=== PATIENT | female | born 1940 | race Caucasian/White ===

== ENCOUNTER 2018-10-03 13:37 | Outpatient (CLI) | payer OTHER ==
--- NOTE | 2018-10-07 08:32 | HOLTER ---
PATIENT INFORMATION AND COMMENTS Attending Physician: DR. DINO CASILLAS Indications: CARDIAC ARRHYTHMIA __ Patient Medications: LEVIMIR, HUMALOG, LISINOPRIL, PLENDIL __ Pre-procedure Summary: Protocol: Standard Heart Rate Started: 10/03/18 1354 Minimum: 56 BPM Weight: 152 LBS Ended: 10/04/18 1354 Maximum: 123 BPM Height: 58" Duration: 24 HOURS Average: 78 BPM _ INTERPRETATIONS/OBSERVATIONS: 1. BASIC RHYTHM: SINUS, RATE 56 BPM TO 125 BPM, AVERAGE 78 BPM 2. INFREQUENT PVC'S--1% OF BEATS SCANNED--ONE EKATERINA--3 COUPLETS 3. FEW PAC'S 4. ONE PAUSE OF 2.[address] NO [address]-T WAVE CHANGES FROM BASELINE 6. ACTIVITY LOG NOT FILLED OUT MTDD
== END 2018-10-03 13:38 | disposition home or self-care (01) ==
LOC: CAR 13:37
PROVIDERS: ATTEND Family Medicine
DX: I49.9 Cardiac arrhythmia, unspecified (principal)
CPT/HCPCS: 93227

== ENCOUNTER 2021-06-03 08:25 | Inpatient (IN) ==
--- NOTE | 2021-06-03 08:49 | ED.PDOC ---
General ED Provider: Dr. ENRIQUE SCHAEFFER Chief Complaint: Shortness of Air Stated Complaint: comes to the Er with complaints of 4 days of progressive shortness of breath initially with activity not even at rest. Denies any chest pain. Time Seen by Provider: 06/03/21 08:38 Mode of Arrival: Walk-In Information Source: Patient Exam Limitations: No limitations Primary Care Provider: DINO LANDRY Nursing and Triage Documentation Reviewed and Agree: Yes Does patient meet sepsis criteria?: No System Inflammatory Response Syndrome: Not Applicable Sepsis Protocol: For patient's 13 years and over: Temp is 96.8 and below OR 101 and greater Pulse >90 BPM Resp >20/minute Acutely Altered Mental Status Are patient's symptoms suggestive of a new infection, such as: -Pneumonia -Skin, Soft Tissue -Endocarditis -UTI -Bone, Joint Infection -Implantable Device -Acute Abdominal Infection -Wound Infection -Meningitis -Blood Stream Catheter Infection -Unknown Review of Systems Review Of Systems Constitutional: Reports No symptoms Eyes: Reports No symptoms Ears, Nose, Mouth, Throat: Reports No symptoms Respiratory: Reports Short of air Cardiac: Reports Edema (legs ( new) ); Denies Chest pain GI: Reports No symptoms : Reports No symptoms Musculoskeletal: Reports No symptoms Skin: Reports No symptoms Neurological: Reports Anxiety Endocrine: Reports No symptoms Hematologic/Lymphatic: Reports No symptoms All Other Systems: Reviewed and Negative [facility] Female Reproductive History Menstrual Hx Hysterectomy: Yes Hx Tubal Ligation: No Physical Exam Physical Exam Appearance: Reports Ill-appearing Ill-appearing: Mild Pain Distress: None Eyes: Reports EOMI and Conjunctiva clear ENT: Reports Nose normal Neck: Not Examined Respiratory: Reports Breath sounds clear, Breath sounds diminished and Crackles (at the bases ) Cardiovascular: Reports RRR and Pulses normal GI/: Reports Soft and Nontender Musculoskeletal: Reports Normal strength, ROM intact and Edema (1-2 + pitting edema ) Skin: Reports Warm Neurological: Reports Sensation intact and Motor intact Psychiatric: Reports Anxious Re-Evaluation Re-Evaluation Time of Re-Evaluation: 11:06 Status: Improved Vital Signs Stable: Yes Physician Notification Case Discussed Physician Notified: Dr Landry Time of Notification: 11:00 (ok to admit) Critical Care Note Critical Care Note Total Critical Care Time (mins): 30 Course Course Hematology/Chemistry: 06/03/21 08:55 06/03/21 08:55 Orders, Labs, Meds: Lab Review 06/03/21 06/03/21 06/03/21 08:46 08:52 08:55 WBC 11.25 H RBC 4.61 Hgb 13.5 Hct 41.8 MCV 90.7 MCH 29.3 MCHC 32.3 RDW Coeff of Asa 13.6 Plt Count 231 Immature Gran % (Auto) 0.3 Neut % (Auto) 70.6 Lymph % (Auto) 20.3 [place] % (Auto) 6.8 Eos % (Auto) 1.6 Baso % (Auto) 0.4 Neut # (Auto) 7.9 H Lymph # (Auto) 2.3 [place] # (Auto) 0.8 Eos # (Auto) 0.2 Baso # (Auto) 0.1 Immature Gran # (Auto) 0.0 Puncture Site R brach Base Excess -1.9 O2 Saturation 89.1 L ABG pH 7.48 H ABG pCO2 29.0 L ABG pO2 52.0 L* ABG HCO3 21.6 ABG Total CO2 22.5 Jose Test + Hemoglobin 1.2 Oxyhemoglobin 86.5 L Carboxyhemoglobin 2.8 H Total Hemoglobin 13.8 O2 Delivery Device Ra FiO2 % 21.0 Sodium Potassium Chloride Carbon Dioxide Anion Gap BUN Creatinine Estimated GFR (MDRD) BUN/Creatinine Ratio Glucose Lactic Acid Calcium Total Bilirubin AST ALT Alkaline Phosphatase Total Creatine Kinase Troponin I NT-Pro-B Natriuret Pep Total Protein Albumin Globulin Albumin/Globulin Ratio Procalcitonin Adenovirus (PCR) Not detected B. pertussis DNA (PCR) Not detected B.parapertussis DNA PCR Not detected C. pneumoniae DNA (PCR) Not detected Coronavirus OC43 (PCR) Not detected Coronavirus HKU1 (PCR) Not detected Coronavirus 229E (PCR) Not detected Coronavirus NL63 (PCR) Not detected Human Metapneumovir PCR Not detected Influenza Type A (PCR) Not detected Influenza B (RT-PCR) Not detected M. pneumoniae (PCR) Not detected Parainfluenza 1 (PCR) Not detected Parainfluenza 2 (PCR) Not detected Parainfluenza 3 (PCR) Not detected Parainfluenza 4 (PCR) Not detected RSV (PCR) Not detected Entero/Rhino (PCR) Not detected SARS-CoV-2 (PCR) Not detected 09/10/21 09/10/21 09/10/21 08:55 08:55 08:55 WBC RBC Hgb Hct MCV MCH MCHC RDW Coeff of Asa Plt Count Immature Gran % (Auto) Neut % (Auto) Lymph % (Auto) [place] % (Auto) Eos % (Auto) Baso % (Auto) Neut # (Auto) Lymph # (Auto) [place] # (Auto) Eos # (Auto) Baso # (Auto) Immature Gran # (Auto) Puncture Site Base Excess O2 Saturation ABG pH ABG pCO2 ABG pO2 ABG HCO3 ABG Total CO2 Jose Test Hemoglobin Oxyhemoglobin Carboxyhemoglobin Total Hemoglobin O2 Delivery Device FiO2 % Sodium 141.5 Potassium 4.37 Chloride 108.0 H Carbon Dioxide 21.9 L Anion Gap 15.97 BUN 16.9 Creatinine 0.94 Estimated GFR (MDRD) 57.00 BUN/Creatinine Ratio 17.97 Glucose 151.8 H Lactic Acid 1.38 Calcium 9.48 Total Bilirubin 0.49 AST 28.7 ALT 26.3 Alkaline Phosphatase 75.7 Total Creatine Kinase 75.9 Troponin I 0.460 H NT-Pro-B Natriuret Pep 6580.000 H Total Protein 8.16 Albumin 4.11 Globulin 4.05 Albumin/Globulin Ratio 1.01 Procalcitonin < 0.05 Adenovirus (PCR) B. pertussis DNA (PCR) B.parapertussis DNA PCR C. pneumoniae DNA (PCR) Coronavirus OC43 (PCR) Coronavirus HKU1 (PCR) Coronavirus 229E (PCR) Coronavirus NL63 (PCR) Human Metapneumovir PCR Influenza Type A (PCR) Influenza B (RT-PCR) M. pneumoniae (PCR) Parainfluenza 1 (PCR) Parainfluenza 2 (PCR) Parainfluenza 3 (PCR) Parainfluenza 4 (PCR) RSV (PCR) Entero/Rhino (PCR) SARS-CoV-2 (PCR) Orders Category Date Time Status ABG DRAW REQUEST Stat CARDIO 06/03/21 08:46 Completed EKG-(ED ONLY) Stat CARDIO 06/03/21 08:40 Completed ABG COOX Stat LAB 06/03/21 08:46 Completed BLOOD CULTURE (ED ONLY) Stat LAB 06/03/21 08:55 Received CBC W/ AUTO DIFF Stat LAB 06/03/21 08:55 Completed COMPREHENSIVE METABOLIC PANEL Stat LAB 06/03/21 08:55 Completed CREATINE KINASE Stat LAB 06/03/21 08:55 Completed LACTIC ACID Stat LAB 06/03/21 08:55 Completed NT-PROBNP Stat LAB 06/03/21 08:55 Completed PROCALCITONIN Stat LAB 06/03/21 08:55 Completed RESPIRATORY PANEL 2.1 (PCR) Stat LAB 06/03/21 08:52 Completed TROPONIN I Stat LAB 06/03/21 08:55 Completed Furosemide [Lasix] MEDS 06/03/21 10:22 Discontinued 20 mg IVP ONCE ONE CHEST, 2 VIEWS PA & LAT Stat RADS 06/03/21 08:39 Completed Medications Generic Name Dose Route Start Last Admin Trade Name Freq PRN Reason Stop Dose Admin Acetaminophen 650 mg 06/03/21 11:12 Acetaminophen 325 Mg Tablet PO Q4H PRN Fever > 102 Aspirin 81 mg 06/04/21 08:30 Aspirin 81 Mg Tablet. PO DAILYWM MICHAEL Enoxaparin Sodium 40 mg 06/04/21 09:00 Enoxaparin Sodium 40 Mg/0.4 Ml Syr SUBCUT DAILY MICHAEL Furosemide 20 mg 06/04/21 06:30 Furosemide Inj 20 Mg/2 Ml Vial IVP QDAC MICHAEL Ondansetron HCl 4 mg 06/03/21 11:12 Ondansetron Hcl/Pf 4 Mg/2 Ml Sdv IVP Q6H PRN Nausea / Vomiting Discontinued Medications Generic Name Dose Route Start Last Admin Trade Name Freq PRN Reason Stop Dose Admin Furosemide 20 mg 06/03/21 10:22 06/03/21 10:37 Furosemide Inj 20 Mg/2 Ml Vial IVP 06/03/21 10:23 20 mg ONCE ONE Administration Vital Signs: Temp Pulse Resp BP Pulse Ox 06/03/21 08:25 98.3 F 84 26 H 197/95 H 91 L Discharge Plan Discharge Patient Disposition: ADMITTED INPATIENT Discharge Problem: CHF (congestive heart failure) Qualifiers: Heart failure type: unspecified Heart failure chronicity: acute Qualified Code(s): I50.9 - Heart failure, unspecified ED Provider: ENRIQUE SCHAEFFER Condition: Fair Physician Progress Note: []
[2021-06-03 09:00] LABS: BORDETELLA PARAPERTUSSIS (PCR) NOT DETECTED (NOT DETECT); BORDETELLA PERTUSSIS (PCR) NOT DETECTED (NOT DETECT); CHLAMYDIA PNEUMONIAE (PCR) NOT DETECTED (NOT DETECT); CORONAVIRUS 229E (PCR) NOT DETECTED (NOT DETECT); CORONAVIRUS HKU1 (PCR) NOT DETECTED (NOT DETECT); CORONAVIRUS NL63 (PCR) NOT DETECTED (NOT DETECT); CORONAVIRUS OC43 (PCR) NOT DETECTED (NOT DETECT); HUMAN METAPNEUMOVIRUS (PCR) NOT DETECTED (NOT DETECT); HUMAN RHINOVIRUS/ENTEROV (PCR) NOT DETECTED (NOT DETECT); INFLUENZA B (PCR) NOT DETECTED (NOT DETECT); MYCOPLASMA PNEUMONIAE (PCR) NOT DETECTED (NOT DETECT); PARAINFLUENZA VIRUS 1 (PCR) NOT DETECTED (NOT DETECT); PARAINFLUENZA VIRUS 2 (PCR) NOT DETECTED (NOT DETECT); PARAINFLUENZA VIRUS 3 (PCR) NOT DETECTED (NOT DETECT); PARAINFLUENZA VIRUS 4 (PCR) NOT DETECTED (NOT DETECT); RESPIRATORY SYNCYTIAL V (PCR) NOT DETECTED (NOT DETECT); SARS_COV_2 (PCR) NOT DETECTED (NOT DETECT)
[2021-06-03 09:00] LABS: BASOPHILS # (AUTO) 0.1 K/uL (0-0.2); BASOPHILS % (AUTO) 0.4 % (0.0-3.0); EOSINOPHILS # (AUTO) 0.2 K/ul (0.0-0.7); EOSINOPHILS % (AUTO) 1.6 % (0.0-7.0); HEMATOCRIT 41.8 % (37.0-47.0); HEMOGLOBIN 13.5 g/dl (12.0-16.0); IMMATURE GRANULOCYTE % (AUTO) 0.3 % (0.0-5.0); LYMPHOCYTES # (AUTO) 2.3 K/uL (0.60-3.4); LYMPHOCYTES % (AUTO) 20.3 (10.0-50.0); MEAN CORPUSCULAR HEMOGLOBIN 29.3 pg (27.0-31.0); MEAN CORPUSCULAR HGB CONC 32.3 (31.8-35.4); MEAN CORPUSCULAR VOLUME 90.7 fl (81.0-99.0); MONOCYTES # (AUTO) 0.8 K/uL (0.4-2.0); MONOCYTES % (AUTO) 6.8 (0-10); NEUTROPHILS # (AUTO) 7.9 K/ul (2.0-6.9); NEUTROPHILS % (AUTO) 70.6 % (42.2-75.2); PLATELET COUNT 231 10^3/uL (140-440); RDW COEFFICIENT OF VARIATION 13.6 % (11.6-14.8); RED BLOOD COUNT 4.61 10^6/ul (4.20-5.40); WHITE BLOOD COUNT 11.25 K/ul (4.6-10.2)
[2021-06-03 09:12] LABS: ALANINE AMINOTRANSFERASE 26.3 U/L (0-35); ALBUMIN 4.11 g/dL (3.5-5.0); ALKALINE PHOSPHATASE 75.7 U/L (53-141); ASPARTATE AMINO TRANSFERASE 28.7 U/L (14-36); BILIRUBIN,TOTAL 0.49 mg/dL (0.2-1.3); BLOOD UREA NITROGEN 16.9 mg/dL (7-17); CALCIUM 9.48 mg/dL (8.4-10.2); CARBON DIOXIDE 21.9 mmol/L (22-30.0); CREATINE KINASE 75.9 U/L (30-135); CREATININE 0.94 mg/dL (0.60-1.30); GLUCOSE 151.8 mg/dL (74-106); POTASSIUM 4.37 mmol/L (3.5-5.1); SODIUM 141.5 mmol/L (134.5-145); TOTAL PROTEIN 8.16 g/dL (6.3-8.2)
[2021-06-03 09:24] LABS: TROPONIN I 0.46 ng/ml (0.0000-0.120)
[2021-06-03 09:36] LABS: ABG PH 7.48 (7.35-7.45)
[2021-06-03 09:37] LABS: ABG O2 HGB 86.5 % (95-100); BEecf -1.9 (-2.0-3.0); COHb 2.8 (0.5-1.5); HCO3 21.6 (21-28); MetHb 1.2 (0-1.5); TCO2 22.5 (19-24); sO2 89.1 % (94-98); tHb 13.8 g/dl (11.7-17.4)
[2021-06-03 09:47] LABS: ADENOVIRUS (PCR) NOT DETECTED (NOT DETECT)
--- NOTE | 2021-06-03 10:10 | DI ---
EXAM: Chest two view, frontal and lateral views. HISTORY: Cough, shortness of breath. COMPARISON: None. FINDINGS: Cardiac silhouette enlarged. Atherosclerotic calcifications present. Vascular congestion noted. Increased interstitial markings seen throughout both lungs with Ca B lines. Minimal melecio nting of the costophrenic angles. There may be minimal basilar consolidation. No pneumothorax. Deg enerative changes in the spine. IMPRESSION: Pulmonary edema.
[2021-06-03] MEDS ORDERED: LASIX IVP ONE ×2 (10:22→17:00)
[2021-06-03] MEDS ORDERED: TYLENOL PO PRN (11:12)
[2021-06-03] MEDS ORDERED: ZOFRAN 4 MG/2 ML IVP PRN (11:12)
[2021-06-03 13:03] VITALS: BMI 31.1
[2021-06-03 17:15] LABS: CREATINE KINASE 68.9 U/L (30-135)
[2021-06-03] MEDS: HUMALOG SUBCUT SCH (17:47)
[2021-06-03 17:51] LABS: TROPONIN I 0.644 ng/ml (0.0000-0.120)
[2021-06-03] MEDS: MUCINEX PO SCH (21:18)
[2021-06-03] MEDS: ZESTRIL PO SCH (21:18)
[2021-06-03] MEDS: LEVEMIR SUBCUT SCH (21:19)
[2021-06-03] MEDS: MOTRIN PO SCH (22:04)
[2021-06-03] MEDS: CALCIUM 500 + VIT D 5 MCG (200 IU) TABLET PO SCH (22:04)
[2021-06-04 01:54] LABS: CREATINE KINASE 64.5 U/L (30-135)
[2021-06-04 02:35] LABS: TROPONIN I 0.58 ng/ml (0.0000-0.120)
[2021-06-04] MEDS ORDERED: AFRIN NASAL SPRAY NAS PRN (05:22)
[2021-06-04 05:50] LABS: BASOPHILS # (AUTO) 0.1 K/uL (0-0.2); BASOPHILS % (AUTO) 0.5 % (0.0-3.0); EOSINOPHILS # (AUTO) 0.4 K/ul (0.0-0.7); EOSINOPHILS % (AUTO) 3.7 % (0.0-7.0); HEMOGLOBIN 13.2 g/dl (12.0-16.0); IMMATURE GRANULOCYTE % (AUTO) 0.3 % (0.0-5.0); LYMPHOCYTES % (AUTO) 29.8 (10.0-50.0); MEAN CORPUSCULAR HEMOGLOBIN 29.1 pg (27.0-31.0); MEAN CORPUSCULAR HGB CONC 32.2 (31.8-35.4); MEAN CORPUSCULAR VOLUME 90.3 fl (81.0-99.0); MONOCYTES # (AUTO) 0.9 K/uL (0.4-2.0); MONOCYTES % (AUTO) 8.8 (0-10); NEUTROPHILS # (AUTO) 5.7 K/ul (2.0-6.9); NEUTROPHILS % (AUTO) 56.9 % (42.2-75.2); PLATELET COUNT 228 10^3/uL (140-440); RDW COEFFICIENT OF VARIATION 13.4 % (11.6-14.8); RED BLOOD COUNT 4.54 10^6/ul (4.20-5.40); WHITE BLOOD COUNT 9.99 K/ul (4.6-10.2)
[2021-06-04] MEDS: PRILOSEC PO SCH (05:51)
[2021-06-04 06:04] LABS: CALCIUM 9.41 mg/dL (8.4-10.2); CARBON DIOXIDE 22.4 mmol/L (22-30.0); CHLORIDE 107.5 mmol/L (98-107); CREATININE 1.03 mg/dL (0.60-1.30); GLUCOSE 70.5 mg/dL (74-106); POTASSIUM 3.94 mmol/L (3.5-5.1); SODIUM 141.7 mmol/L (134.5-145)
[2021-06-04] MEDS ORDERED: LASIX IVP SCH (06:30)
[2021-06-04] MEDS ORDERED: ASPIRIN EC PO SCH (08:30)
[2021-06-04] MEDS ORDERED: NON-FORMULARY MEDICATION (Aspirin 81 mg Capsule) PO SCH (09:00)
[2021-06-04] MEDS ORDERED: ASPIRIN 325 MG PO SCH (09:00)
[2021-06-04] MEDS ORDERED: CALCIUM 500 + VIT D 5 MCG (200 IU) TABLET PO SCH (09:00)
[2021-06-04] MEDS ORDERED: VITAMIN D2 PO SCH (09:00)
[2021-06-04] MEDS ORDERED: CALCIUM CARBONATE PO SCH (09:00)
[2021-06-04] MEDS ORDERED: NON-FORMULARY MEDICATION (Multivitamin Tablet) PO SCH (09:00)
[2021-06-04] MEDS: ASPIRIN EC PO SCH (09:31)
[2021-06-04] MEDS: ZESTRIL PO SCH ×2 (09:31→20:57)
[2021-06-04] MEDS: PLENDIL PO SCH (09:31)
[2021-06-04] MEDS: LOVENOX SUBCUT SCH (09:32)
[2021-06-04] MEDS: MULTIVITAMIN TABLET PO SCH (09:32)
[2021-06-04] MEDS: CALCIUM 500 + VIT D 5 MCG (200 IU) TABLET PO SCH ×2 (09:32→20:58)
[2021-06-04] MEDS: HUMALOG SUBCUT SCH ×3 (12:09→18:21)
[2021-06-04] MEDS: LASIX TAB PO SCH (13:34)
[2021-06-04] MEDS: MOTRIN PO SCH (20:57)
[2021-06-04] MEDS: MUCINEX PO SCH (20:57)
[2021-06-04] MEDS: LEVEMIR SUBCUT SCH (20:58)
[2021-06-04] MEDS: AFRIN NASAL SPRAY NAS PRN (20:58)
[2021-06-05 05:38] LABS: BLOOD UREA NITROGEN 22.9 mg/dL (7-17); CALCIUM 9.13 mg/dL (8.4-10.2); CARBON DIOXIDE 25.4 mmol/L (22-30.0); CHLORIDE 105.4 mmol/L (98-107); CREATININE 1.1 mg/dL (0.60-1.30); GLUCOSE 57.4 mg/dL (74-106); POTASSIUM 3.89 mmol/L (3.5-5.1); SODIUM 141.4 mmol/L (134.5-145)
[2021-06-05] MEDS: PRILOSEC PO SCH (05:42)
[2021-06-05] MEDS: ASPIRIN EC PO SCH (08:44)
[2021-06-05] MEDS: MULTIVITAMIN TABLET PO SCH (08:44)
[2021-06-05] MEDS: PLENDIL PO SCH (08:44)
[2021-06-05] MEDS: CALCIUM 500 + VIT D 5 MCG (200 IU) TABLET PO SCH ×2 (08:45→21:05)
[2021-06-05] MEDS: ZESTRIL PO SCH ×2 (08:45→21:05)
[2021-06-05] MEDS: LOVENOX SUBCUT SCH (08:46)
[2021-06-05] MEDS: HUMALOG SUBCUT SCH ×3 (09:55→17:20)
[2021-06-05] MEDS: LASIX TAB PO SCH (14:45)
[2021-06-05] MEDS: MOTRIN PO SCH (21:04)
[2021-06-05] MEDS: MUCINEX PO SCH (21:04)
[2021-06-05] MEDS: LEVEMIR SUBCUT SCH (21:05)
[2021-06-05] MEDS: AFRIN NASAL SPRAY NAS PRN (21:07)
[2021-06-06 05:20] VITALS: BP 144/58; TEMP 97.3
[2021-06-06] MEDS: PRILOSEC PO SCH (06:06)
[2021-06-06] MEDS: ASPIRIN EC PO SCH (09:16)
[2021-06-06] MEDS: LOVENOX SUBCUT SCH (09:16)
[2021-06-06] MEDS: ZESTRIL PO SCH (09:16)
[2021-06-06] MEDS: MULTIVITAMIN TABLET PO SCH (09:16)
[2021-06-06] MEDS: PLENDIL PO SCH (09:16)
[2021-06-06] MEDS: CALCIUM 500 + VIT D 5 MCG (200 IU) TABLET PO SCH (09:16)
[2021-06-06] MEDS: HUMALOG SUBCUT SCH (09:27)
== END 2021-06-06 09:35 | disposition home or self-care (01) | DRG 189 ==
LOC: ED 08:25 → MEDSURG A 11:03
PROVIDERS: ADMIT Family Medicine; ATTEND Family Medicine
DX: J96.01 Acute respiratory failure with hypoxia; R00.2 Palpitations; R60.0 Localized edema; Z20.822 Contact with and (suspected) exposure to COVID-19; R06.02 Shortness of breath; R05 Cough; F41.9 Anxiety disorder, unspecified; R53.83 Other fatigue